=== PATIENT | male | born 1950 | race Caucasian/White ===

== ENCOUNTER 2018-01-09 12:10 | Day surgery (SDC) | payer MEDICARE, OTHER, SELFPAY ==
--- NOTE | 2018-01-09 | PATH_ITS ---
[facility] Accession Number: [id number] . 01 Material submitted: . COLON POLYPS AT 25CM . 01 Clinical history: . A: POLYP X2 . 02 Diagnosis: Colon, Polyps at 25 cm x2, Biopsies: Hyperplastic polyps. MRV/01/12/2018 . 02 Electronically signed: . Sumaya Adame MD, Pathologist NPI- [id number] . 01 Gross description: . COLON POLYPS AT 25CM: Received in formalin are 2 fragment(s) of workman, soft tissue measuring 0.3 x 0.3 x 0.3 cm to 0.3 x 0.3 x 0.2 cm submitted entirely in 1 cassette(s) /CKI /CKI . 02 Pathologist provided ICD-10: K63.5 . 02 CPT . 605445 Performed at: 01 [facility] [address] [id number] MD Pankaj Buchanan MD Phone: [phone] Performed at: 02 [facility] [address] [place], [place] [id number] MD Ruddy Ghosh MD Phone: [phone]
[2018-01-09 12:45] VITALS: BP 144/78; PULSE 80; RESP 16; TEMP 36.6; O2SAT 97; BMI 26.9
--- NOTE | 2018-01-09 13:02 | SUR.PREOP ---
LORAINE WILCOX STARTED IV ON PT.
[2018-01-09 14:13] VITALS: BP 99/57; RESP 14; TEMP 36.6; O2SAT 96
--- NOTE | 2018-01-09 14:40 | PM.HP.1 ---
History of Present Illness Date Patient Seen: 01/09/18 Time Patient Seen: 14:40 Chief complaint: [id number] Narrative: Mr. Gandara is a very melvin gentleman who is here for a screening colonoscopy. He reports that his father and his paternal grandfather both of colon cancer. His last colonoscopy was in 2004 and at that time he did not have any polyps. He denies any new problems or symptoms related to the function of his GI tract. Patient History Medical History Anxiety (Acute) Depression (Acute) Elevated cholesterol (Acute) Surgical History S/P arthroscopic partial medial meniscectomy (Acute ~2008) Family & Social History Family History: Reviewed 01/09/18 by Vanessa Cantu MD Social History: household members spouse Meds Home Medications Medication Instructions Recorded Confirmed Type atorvastatin [Lipitor] 10 mg PO DAILY 01/09/18 01/09/18 History celecoxib [Celebrex] 200 mg PO DAILY 01/09/18 01/09/18 History fluoxetine [Prozac] 40 mg PO DAILY 01/09/18 01/09/18 History melatonin 2 mg SUBLINGUAL BEDTIME PRN 01/09/18 01/09/18 History methylphenidate HCl [Concerta] 72 mg PO QAM 01/09/18 01/09/18 History mirtazapine [Remeron] 15 mg PO DAILY 01/09/18 01/09/18 History quetiapine [Seroquel] 100 mg PO Q2HR 01/09/18 01/09/18 History zinc sulfate 100 mg PO DAILY 01/09/18 01/09/18 History zolpidem [Ambien] 5 mg PO BEDTIME PRN 01/09/18 01/09/18 History Review of Systems Review of Systems All systems reviewed & are unremarkable except as noted in HPI and below Exam Vital Signs (past 8 hours): - 01/09/18 12:45 01/09/18 14:13 Temperature 97.8 F 97.8 F Pulse Rate 80 Respiratory Rate 16 14 Blood Pressure 144/78 H 99/57 L Pulse Oximetry 97 96 Oxygen Delivery Method Room Air Narrative Exam Narrative: Very pleasant middle-aged gentleman in no obvious distress HEENT: Normocephalic and atraumatic, pupils equal round reactive to light accommodation with anicteric sclera Lungs: Clear to auscultation bilaterally Heart: Regular rate and rhythm without murmur Abdomen: Soft, nontender, active bowel sounds Extremities: Warm and well perfused Assessment & Plan Plan: Assessment/Plan Narrative: We have discussed the risks and benefits colonoscopy and the patient expressed desire to complete the procedure today.
[2018-01-09] MEDS: MIDAZOLAM 5 MG/5 ML VIAL IV (15:07)
[2018-01-09] MEDS: fentaNYL 250 MCG/5 ML INJ IV (15:08)
[2018-01-09] MEDS: SODIUM CHLORIDE 0.9% 1,000 ML 200 ML IV ×2 (15:16→15:18)
--- NOTE | 2018-01-09 15:22 | PM.OP.1 ---
Operative Date/Time/Diagnoses - Date of procedure: 01/09/18 Time of procedure: 15:27 Pre-op diagnosis: Family history of 1st and second-degree relatives with colon cancer Screening colonoscopy Post-op diagnosis: same Procedure & Clinicians Procedure: Colonoscopy to the cecum with polypectomy x2 Same procedure as scheduled: Yes Indications: Last colonoscopy 2004 Surgeon: Vanessa Cantu Anesthesia Type: Sedation (Versed 12 mg; fentanyl 300 mcg) Operative Notes Findings: 1. Excellent prep 2. Significant diverticulosis limited to the sigmoid region with a mixture of large and small pockets but no evidence of false passages 3. Two 3 mm sessile polyps identified and removed at 25 cm from the anal verge. Both were retained for pathology 4. No AV malformations 5. Grade 1-2 internal head Closure Type: not applicable Estimated Blood Loss (mL): 1 Procedure in detail: After obtaining informed consent, the patient was brought to the GI suite and placed in the left lateral decubitus position on the examination table. After placement of appropriate monitors, the patient was given incremental doses of Versed and Fentanyl until an appropriate level of sedation was achieved. A time out was held per SCOAP protocol. A digital rectal examination was performed and did not reveal any masses or obstructing lesions. The colonoscope was gently passed into the patient's anus and the entire colon navigated to the level of the cecum with minimal difficulty. Once in the cecum, the scope was withdrawn being sure to go before and beyond all mucosal folds and prominences and get an excellent examination. The findings are noted above. At the level of the rectal vault, the scope was retroflexed and the internal anal canal was examined. The scope was straightened and air aspirated from the colon. The instrument was removed from the patient's body and the procedure was concluded. The patient was allowed to awaken from sedation without difficulty and taken to the post-anesthesia care unit in good condition. Total sedation time is 40 min Total withdrawal time 17 min Condition: stable Disposition: PACU Plan for aftercare: 1. Discharge to home 2. Plan for next colonoscopy in 3-5 years or as clinically indicated
[2018-01-09 15:26] VITALS: BP 104/67; PULSE 72; RESP 13; TEMP 36.4; O2SAT 94
[2018-01-09 15:31] VITALS: BP 108/71; PULSE 74; RESP 15; O2SAT 93
[2018-01-09 15:36] VITALS: BP 108/66; PULSE 74; RESP 12; O2SAT 993
[2018-01-09 15:51] VITALS: BP 118/60; PULSE 74; RESP 16; O2SAT 94
== END 2018-01-09 16:02 | disposition home or self-care (01) ==
PROVIDERS: PCP Internal Medicine; Visit Provider Surgery
PROC: 0DJD8ZZ Inspection of Lower Intestinal Tract, Via Natural or Artificial Opening Endoscopic (ICD-10-PCS; CPT 45378; principal; 2018-01-09 13:00)
DX: Z12.11 Encounter for screening for malignant neoplasm of colon (principal); Z80.0 Family history of malignant neoplasm of digestive organs; K57.30 Diverticulosis of large intestine without perforation or abscess without bleeding; K64.8 Other hemorrhoids; K63.5 Polyp of colon
CPT/HCPCS: 45380; 88304; 99152; 99153; J2250; J3010

== ENCOUNTER 2018-10-18 06:37 | Emergency (ER) | payer MEDICARE, OTHER, SELFPAY ==
[2018-10-18 06:50] VITALS: BP 128/71; PULSE 68; RESP 16; TEMP 36.9; O2SAT 96; BMI 27.3
--- NOTE | 2018-10-18 08:00 | ED_ITS ---
HPI - URI/Sore Throat General Chief Complaint: Upper Respiratory Symptoms Stated Complaint: worsening sore throat x14 days Time Seen by Provider: 10/18/18 07:45 Source: patient Mode of arrival: ambulatory Limitations: no limitations History of Present Illness HPI Narrative: This is a 68-year-old male comes to the emergency department with complaint of discoloration on his uvula. Patient states that he had gargled forcefully or cleared his throat and he noticed that there were some small bruises or blood blisters on the uvula. He states it was not present anywhere else. Patient states that it went away over time. He did this again recently and they recurred. That went away but then he switched his mouth out with Periogard a prescription oral mouthwash and the area in the same place is a bruise turned white. He states that it was a little uncomfortable to swallow. He states that that was also the case when he had the bruising. He does take an aspirin 81 mg daily. He has not had any swelling of the uvula. He has not any fevers, no hoarseness, no cough or other changes. No difficulty with swallowing otherwise. Patient denies any other symptoms. He has not had any bruising or skin changes or rashes elsewhere. Related Data Home Medications Medication Instructions Recorded Confirmed atorvastatin [Lipitor] 10 mg PO DAILY 01/09/18 01/09/18 celecoxib [Celebrex] 200 mg PO DAILY 01/09/18 01/09/18 fluoxetine [Prozac] 40 mg PO DAILY 01/09/18 01/09/18 melatonin 2 mg SUBLINGUAL BEDTIME PRN 01/09/18 01/09/18 methylphenidate HCl [Concerta] 72 mg PO QAM 01/09/18 01/09/18 mirtazapine [Remeron] 15 mg PO DAILY 01/09/18 01/09/18 quetiapine [Seroquel] 100 mg PO Q2HR 01/09/18 01/09/18 zinc sulfate 100 mg PO DAILY 01/09/18 01/09/18 zolpidem [Ambien] 5 mg PO BEDTIME PRN 01/09/18 01/09/18 Review of Systems Review of Systems ROS Unobtainable: All systems reviewed & are unremarkable except as noted in HPI and below ENT Ears, Nose, Mouth, and Throat: Reports other (The discoloration of uvula) [facility] Medical History Anxiety (Acute) Depression (Acute) Elevated cholesterol (Acute) Surgical History S/P arthroscopic partial medial meniscectomy (Acute ~2008) Social History household members: spouse Smoking Status: Never smoker Social History household members: spouse Smoking Status: Never smoker Exam Narrative Exam Narrative: GEN: well nourished, well appearing male, alert and oriented x 3, patient appears to be in no acute distress. HEENT: Atraumatic, pupils are equal round reactive to light, extraocular movements are intact, nares are clear, TMs are clear with no fluid, there is no conjunctival pallor. Throat is clear without any exudates, erythema, tonsillar enlargement or uvular deviation, patient has a whitish discoloration on the uvula running along the front left side that is irregular showed a linear shape. It is only about 2 mm wide. There is no bruising or petechia noted. There is no ulcerations or other changes to the oropharynx. There is no cervical lymphadenopathy. HEART: Regular rate and rhythm without murmur, clicks, rubs. LUNGS:Lungs clear to auscultation, no wheezes, rales, crackles, chest moves symmetrically ABD:bowel sounds normal, soft, non-tender, no guarding, rebound, rigidity, no masses noted, no hepatosplenomegaly :No CVA tenderness MSCL: Non-tender, no muscle atrophy, muscles strength 5/5 upper and lower extremities, full range of motion, normal gait NEURO:CN 2-12 intact, sensation normal Initial Vital Signs Initial Vital Signs: Vital Signs Temperature 98.4 F 10/18/18 06:50 Pulse Rate 68 10/18/18 06:50 Respiratory Rate 16 10/18/18 06:50 Blood Pressure 128/71 10/18/18 06:50 Pulse Oximetry 96 10/18/18 06:50 Course Vital Signs - 8 hr 10/18/18 06:50 Temperature 98.4 F Pulse Rate 68 Respiratory Rate 16 Blood Pressure 128/71 Pulse Oximetry 96 MDM - URI/Sore Throat Lab Data Point of Care Testing Rapid Strep A Negative MDM Narrative Medical decision making narrative: Discussed with patient I suspect that the mo uth loss which has chlorhexidine in it because the skin color changes. An irritation. With a ?blood blisters were. I suspect from trauma to the posterior throat he had the bruising and discoloration. Discussed with patient signs and symptoms to watch for. If he has recurrent symptoms he does need to follow up with primary care and have further evaluation. If he did have any swelling or other injuries or changes he would need to come into the emergency department or wherever was closest for repeat evaluation. Patient is comfortable with the plan. Discharge Plan Departure Patient Disposition: Home Clinical Impression: Disorder of uvula, Seborrheic keratoses Discharge Date/Time: 10/18/18 08:07 Interventions: ED Discharge Assessment Last Done: 10/18/18 08:07 Activity Restrictions/Additional Instructions: Follow-up with your primary care physician if you have recurrent symptoms, if your having swelling, pain or other concerning changes. Avoid gargling, increasing the pressure in the back of your throat or any trauma to the back of her throat/uvula. You may continue her home medications as prescribed. Return to the ER if you are having fevers, swelling of the uvula, swelling in the back of the throat or tongue, hoarseness, change of voice or other new or concerning symptoms. Prescriptions: No Action celecoxib [Celebrex] 200 mg Capsule 200 mg PO DAILY RF: 0 fluoxetine [Prozac] 40 mg Capsule 40 mg PO DAILY RF: 0 atorvastatin [Lipitor] 10 mg Tablet 10 mg PO DAILY RF: 0 methylphenidate HCl [Concerta] 54 mg Tablet Extended Release 24hr 72 mg PO QAM RF: 0 quetiapine [Seroquel] 100 mg Tablet 100 mg PO Q2HR RF: 0 zolpidem [Ambien] 5 mg Tablet 5 mg PO BEDTIME PRN (Reason: Sleep) RF: 0 mirtazapine [Remeron] 15 mg Tablet 15 mg PO DAILY RF: 0 melatonin 1 mg Tablet, Sublingual 2 mg SUBLINGUAL BEDTIME PRN (Reason: Sleep) RF: 0 zinc sulfate capsule 100 mg PO DAILY RF: 0 Referrals: Alis Abel MD [Primary Care Provider] -
== END 2018-10-18 08:07 | disposition home or self-care (01) ==
PROVIDERS: Emergency Provider Emergency Medicine; PCP Internal Medicine
DX: K13.79 Other lesions of oral mucosa (principal); L82.1 Other seborrheic keratosis
CPT/HCPCS: 87880; 99282

== ENCOUNTER → 2020-02-03 11:22 | Outpatient (CLI) | payer MEDICARE, OTHER, SELFPAY ==
--- NOTE | 2020-02-03 | DI.MRI.S_ITS ---
PROCEDURE: MR LUMBAR SPINE WO CON INDICATIONS: Spinal stenosis, lumbar region TECHNIQUE: Noncontrast sagittal T1 spin echo and T2 fast echo, sagittal STIR, axial T1 and T2 fast spin echo through the lumbar spine. In cases with scoliosis, additional coronal T2 fast spin echo may be performed. COMPARISON: None. FINDINGS: Image quality: Excellent. Alignment and Curvature: There is normal bony alignment. Bone Marrow: Reactive endplate changes noted adjacent to the L1-L2, L2-L3, L3-L4, L4-L5 and L5-S1 discs. No acute vertebral body compression fractures. Spinal Cord: Conus medullaris terminates at the L1 level. Visualized cord demonstrates normal signal and size. Paraspinous Soft Tissues: No paravertebral masses. L1-L2: Loss of disc signal and height. Moderate, diffuse disc bulge. Cylb-at-nyqhuuim facet and moderate ligamentum flavum hypertrophy. Moderate to severe narrowing of the central canal. Moderate bilateral neural foraminal narrowing. No neural compression. L2-L3: Loss of disc signal and height. Mild, diffuse disc bulge. Moderate facet and moderate ligamentum flavum hypertrophy. Moderate to severe narrowing of the central canal. Moderate bilateral neural foraminal narrowing. No neural compression. L3-L4: Loss of disc signal and height. Moderate, diffuse disc bulge. Moderate facet and severe ligamentum flavum hypertrophy. Severe narrowing of the central canal with compression of the nerve roots of the cauda equina. Severe bilateral neural foraminal narrowing with compression of the exiting L3 nerve roots. L4-L5: Loss of disc signal and height. Moderate, diffuse disc bulge. Moderate to severe bilateral facet hypertrophy. Severe ligamentum flavum hypertrophy. Severe narrowing of the central canal with compression of the nerve roots of the cauda equina. Severe bilateral neural foraminal narrowing with compression of the exiting L4 nerve roots. L5-S1: Loss of disc signal and height. Mild, diffuse disc bulge. Mild bilateral facet hypertrophy. No central stenosis. Severe bilateral neural foraminal narrowing with compression of the exiting L5 nerve roots. IMPRESSION: 1. Multilevel degenerative disc disease. 2. Multilevel facet arthropathy. 3. Severe L3-L4 and L4-L5 central canal narrowing with compression of the nerve roots of the cauda equina. 4. Severe bilateral L3-L4, L4-L5 and L5-S1 neural foraminal narrowing with compression of the exiting bilateral L3, L4 and L5 nerve roots. Dictated by: Ivelisse Chavez MD, PhD on 02/03/2020 at 13:16 Approved by: Ivelisse Chavez MD, PhD on 02/03/2020 at 13:36
== END ==
PROVIDERS: Referring Provider Orthopaedic Surgery Orthopaedic Surgery of the Spine; Visit Provider Orthopaedic Surgery Orthopaedic Surgery of the Spine
DX: M48.061 Spinal stenosis, lumbar region without neurogenic claudication (principal); M48.07 Spinal stenosis, lumbosacral region; M51.36 Other intervertebral disc degeneration, lumbar region; M51.37 Other intervertebral disc degeneration, lumbosacral region; M47.816 Spondylosis without myelopathy or radiculopathy, lumbar region; M47.817 Spondylosis without myelopathy or radiculopathy, lumbosacral region
CPT/HCPCS: 72148